=== PATIENT | female | born 1930 | race Caucasian/White ===

== ENCOUNTER 2020-04-20 15:03 | Inpatient (IN) | payer OTHER ==
[~2020-04-20] VITALS: Ht 157.5 cm; Wt 62.5 kg
[2020-04-20 15:36] LABS: Urine Bacteria NONE SEEN /hpf (None Seen); Urine Blood Negative /uL (Negative); Urine Mucus FEW (None Seen); Urine WBC <1 /hpf (0 - 5)
[2020-04-20 16:00] LABS: Basophils # (auto) 0 10 ^3/uL (0-0.2); Basophils % (auto) 0.2 % (0.0-2.0); Eosinophils # (auto) 0.2 10 ^3/uL (0-0.8); Eosinophils % (auto) 2.5 % (0.0-7.0); Hematocrit 31.8 % (36.0-46.0); Lymphocytes # (auto) 1.3 10 ^3/uL (0.4-5.4); Lymphocytes % (auto) 13.3 % (10.0-50.0); Mean Corpuscular Hemoglobin 31.9 pg (28.0-32.0); Mean Corpuscular Hgb Conc. 34.7 g/dL (32.0-36.0); Mean Corpuscular Volume 92.1 fL (80.0-100.0); Monocytes # (auto) 0.7 10 ^3/uL (0-1.3); Monocytes % (auto) 7.1 % (0.0-12.0); Neutrophils # (auto) 7.5 10 ^3/uL (1.6-8.6); Neutrophils % (auto) 76.9 % (37.0-80.0); Platelet Count (auto) 193 10^3/uL (140-450); Red Blood Cells 3.45 10^6/uL (4.0-5.20); Red Cell Distribution Width 14.2 % (11.8-14.3); White Blood Cell 9.7 10^3/uL (4.4-10.8)
[2020-04-20 16:17] LABS: Albumin 3.6 g/dL (3.4-5.0); Calcium 8.8 mg/dL (8.5-10.1); Potassium 3.7 mmol/L (3.5-5.1)
[2020-04-20 16:20] LABS: BUN/Creatinine Ratio 20.5; Bilirubin, Total 0.6 mg/dL (0.2-1.0); Total Protein 8.8 g/dL (6.4-8.2)
[2020-04-20] MEDS ORDERED: metroNIDAZOLE 500MG/100ML 100 ML IV ONE (17:00)
[2020-04-20] MEDS ORDERED: cefTRIAXone 1GM/50ML D5W 50 ML IV ONE (17:00)
[2020-04-20] MEDS ORDERED: MORPHINE SULF INJ 2 MG/ML SYRINGE 1ML IV PRN (19:15)
[2020-04-20] MEDS ORDERED: traMADol HCL 50 MG TAB PO PRN (19:15)
[2020-04-20] MEDS ORDERED: ACETAMINOPHEN 325 MG TAB PO PRN (19:15)
[2020-04-20] MEDS ORDERED: NITROGLYCERIN 0.4 MG SL TAB SL PRN (19:15)
[2020-04-20] MEDS ORDERED: ONDANSETRON HCL 4 MG/2 ML VIAL ONE (20:46)
[2020-04-20 20:57] LABS: Cholesterol 135 mg/dL (< 200); Triglycerides 70 mg/dL (< 150)
[2020-04-20 21:00] LABS: HDL Cholesterol 48 mg/dL (40-59); LDL Cholesterol 78 mg/dL (< 100)
[2020-04-20] MEDS: MORPHINE SULF INJ 2 MG/ML SYRINGE 1ML IV PRN (21:13)
[2020-04-20] MEDS: ONDANSETRON HCL 4 MG/2 ML VIAL IV PRN (21:13)
[2020-04-21] MEDS: metroNIDAZOLE 500MG/100ML 100 ML IV SCH ×4 (03:31→22:43)
[2020-04-21 07:18] LABS: BUN/Creatinine Ratio 17.6; Basophils # (auto) 0 10 ^3/uL (0-0.2); Basophils % (auto) 0.3 % (0.0-2.0); Calcium 8.9 mg/dL (8.5-10.1); Eosinophils # (auto) 0.3 10 ^3/uL (0-0.8); Eosinophils % (auto) 3.5 % (0.0-7.0); Hematocrit 30.9 % (36.0-46.0); Hemoglobin 10.5 g/dL (12.2-16.2); Lymphocytes % (auto) 25.4 % (10.0-50.0); Mean Corpuscular Hemoglobin 31.2 pg (28.0-32.0); Mean Corpuscular Hgb Conc. 33.9 g/dL (32.0-36.0); Mean Corpuscular Volume 92.1 fL (80.0-100.0); Monocytes # (auto) 0.7 10 ^3/uL (0-1.3); Monocytes % (auto) 8.9 % (0.0-12.0); Neutrophils # (auto) 4.9 10 ^3/uL (1.6-8.6); Neutrophils % (auto) 61.9 % (37.0-80.0); Nucleated Red Blood Cells % 0.1 %; Platelet Count (auto) 190 10^3/uL (140-450); Potassium 4.2 mmol/L (3.5-5.1); Red Blood Cells 3.35 10^6/uL (4.0-5.20); Red Cell Distribution Width 14.1 % (11.8-14.3); White Blood Cell 7.9 10^3/uL (4.4-10.8)
[2020-04-21 08:30] VITALS: BP 147/71
[2020-04-21] MEDS: cefTRIAXone 1GM/50ML D5W 50 ML IV SCH (10:25)
[2020-04-21] MEDS ORDERED: IBUP200C14 PO (11:14)
[2020-04-21 12:00] VITALS: BP 132/63
[2020-04-21] MEDS: ONDANSETRON HCL 4 MG/2 ML VIAL IV PRN (14:05)
[2020-04-21] MEDS: MORPHINE SULF INJ 2 MG/ML SYRINGE 1ML IV PRN (14:05)
[2020-04-21 16:00] VITALS: BP 124/76
[2020-04-21 22:00] VITALS: BP 136/73
[2020-04-22] MEDS ORDERED: INFLUENZA QUAD 2020-2021 0.5 ML SYRG IM ONE (02:00)
[2020-04-22 05:00] VITALS: BP 154/98
[2020-04-22] MEDS: metroNIDAZOLE 500MG/100ML 100 ML IV SCH ×3 (05:51→21:37)
[2020-04-22 09:00] VITALS: BP 129/79
[2020-04-22] MEDS: cefTRIAXone 1GM/50ML D5W 50 ML IV SCH (09:00)
[2020-04-22 13:00] VITALS: BP 134/54
[2020-04-22 16:51] VITALS: BP 144/75
[2020-04-22 22:00] VITALS: BP 127/62
[2020-04-23 05:00] VITALS: BP 155/75
[2020-04-23] MEDS: metroNIDAZOLE 500MG/100ML 100 ML IV SCH (06:22)
[2020-04-23 07:26] VITALS: BP 123/77
[2020-04-23] MEDS: cefTRIAXone 1GM/50ML D5W 50 ML IV SCH (08:12)
[2020-04-23] MEDS ORDERED: METR500T14 PO (12:07)
[2020-04-23] MEDS ORDERED: LEVO500T31 PO (12:13)
[2020-04-23 12:47] VITALS: BP 146/70
== END 2020-04-23 14:08 | disposition home or self-care (01) | DRG 392 ==
LOC: ER 15:03 → TELE 15:04 → TELE-EAST 04-21 17:37
PROVIDERS: ADMIT Nurse Practitioner Acute Care; ATTEND Internal Medicine Nephrology
DX: K52.9 Noninfective gastroenteritis and colitis, unspecified (principal); I10 Essential (primary) hypertension; E11.9 Type 2 diabetes mellitus without complications; D64.9 Anemia, unspecified; R32 Unspecified urinary incontinence; K57.30 Diverticulosis of large intestine without perforation or abscess without bleeding; Z80.3 Family history of malignant neoplasm of breast; Z79.84 Long term (current) use of oral hypoglycemic drugs; Z20.822 Contact with and (suspected) exposure to COVID-19
CPT/HCPCS: 36415; 74176; 80048; 80053; 80061; 81001; 83036; 83690; 84443; 85025; 87426; 93005; 96365; 96367; 96375; G0378; J0696; J2405; J3490

== ENCOUNTER → 2020-06-07 | Outpatient (CLI) | payer OTHER ==
[~2020-06-07] MED LIST: LEVO500T31 PO; METR500T14 PO
[2020-06-07 17:12] LABS: Urine Bacteria FEW /hpf (None Seen); Urine Blood Negative /uL (Negative); Urine Specific Gravity 1.007 (1.001-1.035); Urine WBC <1 /hpf (0 - 5)
== END | disposition home or self-care (01) ==
LOC: LAB 16:54
PROVIDERS: ATTEND Urology
DX: N39.0 Urinary tract infection, site not specified (principal)
CPT/HCPCS: 81001; 87086

== ENCOUNTER 2020-06-14 11:26 | Inpatient (IN) | payer OTHER ==
[~2020-06-14] VITALS: Ht 157.5 cm; Wt 60.0 kg
[2020-06-14] MEDS ORDERED: SODIUM CHLORIDE 0.9% 500 ML IV ONE ×2 (11:45→16:15)
[2020-06-14] MEDS ORDERED: ASPirin 81 mg TAB PO ONE (13:00)
[2020-06-14 13:17] LABS: Hematocrit 31.7 % (36.0-46.0); Hemoglobin 10.6 g/dL (12.2-16.2); Mean Corpuscular Hemoglobin 30.5 pg (28.0-32.0); Mean Corpuscular Hgb Conc. 33.4 g/dL (32.0-36.0); Mean Corpuscular Volume 91.2 fL (80.0-100.0); Platelet Count (auto) 193 10^3/uL (140-450); Red Blood Cells 3.48 10^6/uL (4.0-5.20); White Blood Cell 12.7 10^3/uL (4.4-10.8)
[2020-06-14 13:24] LABS: Basophils % (manual) 0 (0.0-2.0); Blast Cells 0; Eosinophils % (manual) 0 (0-7); Myelocytes % 0; Promyelocytes % 0; Reactive Lymphocytes 0
[2020-06-14 13:39] LABS: Alanine Aminotransferase 23 U/L (13-56); Albumin 2.9 g/dL (3.4-5.0); Anion Gap 14 (5-15); Aspartate Aminotransferase 33 U/L (15-37); BUN/Creatinine Ratio 30.1; Blood Urea Nitrogen 31 mg/dL (7-18); Calcium 8.9 mg/dL (8.5-10.1); Carbon Dioxide 17 mmol/L (21-32); Chloride 93 mmol/L (98-107); GFR African American 65 mL/min; GFR Non-African American 54 mL/min; Glucose 126 mg/dL (74-106); Magnesium 2.3 mg/dL (1.6-2.6); Potassium 4.2 mmol/L (3.5-5.1); Sodium 124 mmol/L (136-145)
[2020-06-14 13:46] LABS: Alkaline Phosphatase 105 U/L (45-117); Bilirubin, Total 0.8 mg/dL (0.2-1.0); Total Protein 8.5 g/dL (6.4-8.2)
[2020-06-14 15:27] LABS: Band Neutrophils % (manual) 3; Lymphocytes % (manual) 7 (10.0-50.0); Metamyelocytes % 2; Monocytes % (manual) 3 (0-12)
[2020-06-14 15:27] LABS: Urine Bacteria FEW /hpf (None Seen); Urine WBC 9 /hpf (0 - 5)
[2020-06-14 15:28] LABS: Urine Blood TRACE /uL (Negative); Urine Specific Gravity 1.011 (1.001-1.035)
[2020-06-14] MEDS ORDERED: ENOXAPARIN SOD 60 MG/0.6 ML SYRINGE SC ONE (16:00)
[2020-06-14] MEDS ORDERED: cefTRIAXone 1GM/50ML D5W 50 ML IV ONE (16:15)
[2020-06-14] MEDS ORDERED: ACETAMINOPHEN 500 MG TAB PO PRN (16:15)
[2020-06-14] MEDS ORDERED: ONDANSETRON HCL 4 MG/2 ML VIAL IV PRN (16:15)
[2020-06-14] MEDS ORDERED: NITROGLYCERIN 0.4 MG SL TAB SL PRN (16:15)
[2020-06-14] MEDS ORDERED: MORPHINE SULF INJ 2 MG/ML SYRINGE 1ML IV PRN ×2 (16:15)
[2020-06-14] MEDS: SODIUM CHLORIDE 0.9% 1,000 ML IV SCH (16:40)
[2020-06-14] MEDS: HYDROcodone-ACET 5/325MG TAB PO PRN (16:42)
[2020-06-14 21:26] VITALS: BP 121/59
[2020-06-14 22:00] VITALS: BP 121/59
[2020-06-15] MEDS: HYDROcodone-ACET 5/325MG TAB PO PRN (00:47)
[2020-06-15] MEDS ORDERED: ENOXAPARIN SOD 60 MG/0.6 ML SYRINGE SC SCH (04:00)
[2020-06-15 05:00] VITALS: BP 120/54
[2020-06-15] MEDS: SODIUM CHLORIDE 0.9% 1,000 ML IV SCH ×3 (05:52→17:50)
[2020-06-15 06:12] LABS: Hemoglobin 10.4 g/dL (12.2-16.2); Mean Corpuscular Hemoglobin 31.6 pg (28.0-32.0); Mean Corpuscular Hgb Conc. 34.7 g/dL (32.0-36.0); Mean Corpuscular Volume 91.2 fL (80.0-100.0); Platelet Count (auto) 161 10^3/uL (140-450); Red Blood Cells 3.29 10^6/uL (4.0-5.20); Red Cell Distribution Width 13.8 % (11.8-14.3); White Blood Cell 7.9 10^3/uL (4.4-10.8)
[2020-06-15 06:30] LABS: Anion Gap 9 (5-15); Basophils % (manual) 0 (0.0-2.0); Blast Cells 0; Blood Urea Nitrogen 27 mg/dL (7-18); Calcium 8.8 mg/dL (8.5-10.1); Carbon Dioxide 20 mmol/L (21-32); Chloride 100 mmol/L (98-107); Eosinophils % (manual) 0 (0-7); Glucose 92 mg/dL (74-106); Myelocytes % 0; Promyelocytes % 0; Reactive Lymphocytes 0; Sodium 129 mmol/L (136-145)
[2020-06-15 06:36] LABS: BUN/Creatinine Ratio 32.9; GFR African American 85 mL/min; GFR Non-African American 70 mL/min
[2020-06-15 07:18] LABS: Band Neutrophils % (manual) 8; Lymphocytes % (manual) 9 (10.0-50.0); Metamyelocytes % 2; Monocytes % (manual) 16 (0-12)
[2020-06-15 09:00] VITALS: BP 139/68
[2020-06-15] MEDS: PANTOPRAZOLE 40 MG TAB PO SCH (09:39)
[2020-06-15] MEDS: cefTRIAXone 1GM/50ML D5W 50 ML IV SCH (09:39)
[2020-06-15] MEDS ORDERED: ENOXAPARIN SOD 40 MG/0.4 ML SYRINGE SC SCH (10:00)
[2020-06-15] MEDS ORDERED: CYANOCOBALAMIN 500 MCG TAB PO ONE (12:30)
[2020-06-15] MEDS ORDERED: DOCUSATE SOD 100 MG CAP PO ONE (12:30)
[2020-06-15] MEDS ORDERED: traMADol HCL 50 MG TAB PO PRN (12:30)
[2020-06-15] MEDS ORDERED: DOCUSATE SOD 100 MG CAP PO PRN (12:30)
[2020-06-15 13:00] VITALS: BP 142/60
[2020-06-15 16:36] VITALS: BP 130/76
[2020-06-15 22:00] VITALS: BP 136/90
[2020-06-15] MEDS: MUPIROCIN 2% OINT 15gm or 22gm EACHNOSTRI SCH (22:03)
[2020-06-16 05:00] VITALS: BP 137/68
[2020-06-16 07:49] LABS: BUN/Creatinine Ratio 27.1; Calcium 8.3 mg/dL (8.5-10.1); Potassium 3.8 mmol/L (3.5-5.1)
[2020-06-16 07:54] LABS: Hematocrit 29.6 % (36.0-46.0); Hemoglobin 10.3 g/dL (12.2-16.2); Mean Corpuscular Hemoglobin 31.3 pg (28.0-32.0); Mean Corpuscular Hgb Conc. 34.6 g/dL (32.0-36.0); Mean Corpuscular Volume 90.2 fL (80.0-100.0); Platelet Count (auto) 176 10^3/uL (140-450); Red Blood Cells 3.29 10^6/uL (4.0-5.20); Red Cell Distribution Width 14.1 % (11.8-14.3); White Blood Cell 5.8 10^3/uL (4.4-10.8)
[2020-06-16 08:12] LABS: Basophils % (manual) 0 (0.0-2.0); Blast Cells 0; Eosinophils % (manual) 0 (0-7); Metamyelocytes % 0; Myelocytes % 0; Promyelocytes % 0; Reactive Lymphocytes 0
[2020-06-16 08:30] VITALS: BP 147/74
[2020-06-16 09:03] LABS: Band Neutrophils % (manual) 8; Lymphocytes % (manual) 17 (10.0-50.0); Monocytes % (manual) 9 (0-12)
[2020-06-16] MEDS: cefTRIAXone 1GM/50ML D5W 50 ML IV SCH (09:52)
[2020-06-16] MEDS: PANTOPRAZOLE 40 MG TAB PO SCH (09:52)
[2020-06-16] MEDS: SODIUM CHLORIDE 0.9% 1,000 ML IV SCH (09:52)
[2020-06-16] MEDS: MUPIROCIN 2% OINT 15gm or 22gm EACHNOSTRI SCH (09:53)
[2020-06-16] MEDS ORDERED: CYANOCOBALAMIN 500 MCG TAB PO SCH (10:00)
[2020-06-16] MEDS ORDERED: ERGOCALCIFEROL 50,000 UNIT(1.25MG) CAP PO SCH (11:15)
[2020-06-16] MEDS ORDERED: MILK OF MAGNESIA 30ML SUSP PO ONE (11:45)
[2020-06-16 12:30] VITALS: BP 150/79
[2020-06-16] MEDS ORDERED: MUPIROCIN 2% OINT 15gm or 22gm EACHNOSTRI SCH (22:00)
== END 2020-06-16 15:13 | disposition home or self-care (01) | DRG 871 ==
LOC: ER 11:26 → TELE 11:27 → TELE-WESTW 20:42 → WEST WING 06-15 17:20
PROVIDERS: ADMIT Nurse Practitioner Acute Care; ATTEND Internal Medicine
DX: A41.9 Sepsis, unspecified organism (principal); N17.0 Acute kidney failure with tubular necrosis; E44.0 Moderate protein-calorie malnutrition; E87.1 Hypo-osmolality and hyponatremia; Z20.822 Contact with and (suspected) exposure to COVID-19; I10 Essential (primary) hypertension; E11.9 Type 2 diabetes mellitus without complications; E53.8 Deficiency of other specified B group vitamins; E55.9 Vitamin D deficiency, unspecified; D64.9 Anemia, unspecified; N30.90 Cystitis, unspecified without hematuria; Z86.73 Personal history of transient ischemic attack (TIA), and cerebral infarction without residual deficits; Z79.899 Other long term (current) drug therapy; Z82.49 Family history of ischemic heart disease and other diseases of the circulatory system; Z80.1 Family history of malignant neoplasm of trachea, bronchus and lung; Z80.3 Family history of malignant neoplasm of breast; Z87.891 Personal history of nicotine dependence; Z79.84 Long term (current) use of oral hypoglycemic drugs
CPT/HCPCS: 36415; 71045; 80048; 80053; 81001; 82306; 82607; 83735; 84443; 84484; 85007; 85025; 85027; 85379; 87040; 87081; 87086; 87088; 87186; 87426; 93005; 93306; 93970; 96361; 96365; 96372; G0378; J0696